=== PATIENT | female | born 1985 | race African-American/Black ===

== ENCOUNTER 2021-12-16 13:22 | Emergency (ER) | payer BC ==
[2021-12-16 13:33] VITALS: BP 134/79; PULSE 69; RESP 17; TEMP 98.2; BMI 21.2
[2021-12-16 14:36] LABS: BASO % 0.5 % (0-2.0); EOS % 1.2 % (0-4.5); HEMATOCRIT 32.1 % (32.4-45.2); HEMOGLOBIN 10.6 GM/dL (10.7-15.3); LYMPH % 23.8 % (8-40); MCH 30.4 pg (25.7-33.7); MEAN PLT VOLUME 7.6 fl (7.5-11.1); MONO % 11.2 % (3.8-10.2); NEUT % 63.3 % (42.8-82.8); PLATELET COUNT 342 10^3/uL (134-434); RBC 3.49 M/mm3 (3.60-5.2); RDW 14.9 % (11.6-15.6); WHITE BLOOD COUNT 6.6 K/mm3 (4.0-10.0)
[2021-12-16 14:57] LABS: CHLORIDE 108 mmol/L (98-107); SODIUM 141 mmol/L (136-145)
[2021-12-16 14:59] LABS: ANION GAP 6 MMOL/L (8-16); BLOOD UREA NITROGEN 7.9 mg/dL (7-18); CALCIUM 8.5 mg/dL (8.5-10.1); CO2 26 mmol/L (21-32); GLUCOSE,RANDOM 80 mg/dL (74-106)
[2021-12-16 15:03] LABS: CREATININE 0.8 mg/dL (0.55-1.3)
== END 2021-12-16 15:22 | disposition home or self-care (01) ==
LOC: JER 13:22 → JERFT 13:22
DX: N93.9 Abnormal uterine and vaginal bleeding, unspecified (principal)
CPT/HCPCS: 36415; 80048; 84702; 85025; 86850; 86900; 86901; 99283-25